=== PATIENT | female | born 1990 | race Two or more races ===

== ENCOUNTER 2018-12-06 21:56 | Emergency (ER) | payer OTHER ==
[~2018-12-06] VITALS: Ht 172.7 cm; Wt 62.8 kg
--- NOTE | 2018-12-06 22:36 | NUR ---
pt to room from lobby
--- NOTE | 2018-12-06 22:58 | NUR ---
YESTERDAY STARTED VAGINAL BLEEDING, NO PAIN, STATED BLOOD IS BROWN. STATED MENSTRATION IS SUPPOSED TO START IN 15 DAYS. LMP - 11/22. PA AT BEDSIDE FOR EXAM
--- NOTE | 2018-12-06 23:21 | NUR ---
URINE SAMPLE SENT
[2018-12-06 23:30] LABS: CLUE CELLS NONE SEEN (NONE SEEN); WET PREP WBCS FEW (FEW)
[2018-12-06 23:40] LABS: MICROSCOPIC NOT IND
[2018-12-06 23:41] LABS: BASOPHILS # (AUTO) 0.03 x10^3/uL (0-0.1); BASOPHILS % (AUTO) 0 % (0-1); EOSINOPHILS # (AUTO) 0.07 x10^3/uL (0-0.4); EOSINOPHILS % (AUTO) 1 % (1-7); LYMPHOCYTES # (AUTO) 1.84 x10^3/uL (1-3.4); LYMPHOCYTES % (AUTO) 22 % (22-44); MD NO; MEAN CORPUSCULAR HEMOGLOBIN 30.7 pg (27.0-34.8); MEAN CORPUSCULAR HGB CONC 32.9 g/dL (32.4-35.8); MEAN CORPUSCULAR VOLUME 93.3 fL (80-100); MEAN PLATELET VOLUME 7.7 fL (7.4-10.4); MONOCYTES # (AUTO) 0.64 x10^3/uL (0.2-0.8); MONOCYTES % (AUTO) 8 % (2-9); NEUTROPHILS # (AUTO) 5.63 x10^3/uL (1.8-6.8); NEUTROPHILS % (AUTO) 69 % (42-75); PLATELET COUNT 228 x10^3/uL (130-400); RED BLOOD COUNT 4.67 x10^6/uL (3.82-5.3); RED CELL DISTRIBUTION WIDTH 13.6 % (9.6-15.2)
[2018-12-06 23:46] LABS: CULTURE INDICATED? NO
[2018-12-06 23:48] VITALS: BP 105/69
[2018-12-06 23:48] LABS: ALBUMIN 3.8 g/dL (3.4-5.0); ANION GAP 4 mmol/L (5-15); CHLORIDE 109 mmol/L (98-107)
[2018-12-06 23:53] LABS: CREATININE 0.92 mg/dL (0.55-1.02)
== END 2018-12-07 00:21 | disposition home or self-care (01) ==
LOC: ED 12-07 00:14
DX: B37.3 Candidiasis of vulva and vagina (principal); N92.1 Excessive and frequent menstruation with irregular cycle
CPT/HCPCS: 36415; 80048; 81003; 82040; 84703; 85025; 87210; 87491; 87591; 87808; 99283